=== PATIENT | female | born 1950 | race Caucasian/White ===

== ENCOUNTER → 2019-10-23 13:08 | Outpatient (CLI) | payer MEDICARE, OTHER | END | disposition home or self-care (01) | LOC: D.LAB 13:08 | PROVIDERS: ATTEND Internal Medicine Pulmonary Disease | DX: Z11.59 Encounter for screening for other viral diseases (principal) ==

== ENCOUNTER → 2019-10-26 14:49 | Outpatient (CLI) | payer MEDICARE, OTHER | END | disposition home or self-care (01) | LOC: D.RAD 14:45 → D.RT 15:00 | PROVIDERS: ATTEND Internal Medicine Pulmonary Disease | DX: R06.09 Other forms of dyspnea (principal); Z13.9 Encounter for screening, unspecified ==